=== PATIENT | female | born 1955 | race Caucasian/White ===

== ENCOUNTER 2016-08-12 20:52 | Emergency (ER) | payer MEDICAID ==
[~2016-08-12] VITALS: Ht 172.7 cm; Wt 60.0 kg
[~2016-08-12 20:52] MED LIST: ZYPR10TA PO
[2016-08-12 21:37] VITALS: BP 122/63; PULSE 88; RESP 18; TEMP 98.9; O2SAT 96
[2016-08-12] MEDS ORDERED: SODIUM CHLOR 0.9% 1000 ML INJ 1,000 ML IV SCH (21:54)
[2016-08-12] MEDS ORDERED: SODIUM CHLOR 0.9% 1000 ML INJ 1,000 ML IV ONE (22:00)
[2016-08-12] MEDS ORDERED: SODIUM CHLORIDE 0.9% FLUSH 10 ML FLUSH IV FLUSH PRN (22:00)
[2016-08-12] MEDS ORDERED: ONDANSETRON HCL 4 MG/2 ML VIAL IVP ONE (22:00)
[2016-08-12] MEDS ORDERED: FAMOTIDINE 20 MG/2 ML VIAL IV PUSH ONE (22:00)
--- NOTE | 2016-08-12 22:01 | PD ---
HPI Chief Complaint: Abdominal Pain Time Seen by Provider: 21:49 Travel History International Travel<30 days: No Contact w/Intl Traveler<30days: No Traveled to known affect area: No History of Present Illness HPI Patient is a 61-year-old female with history of schizophrenia who presents to emergency room from [facility] for evaluation of nausea, vomiting and abdominal pain. Patient reports that she has not been feeling well for the past few days, reports that she has been feeling nauseous and has been vomiting. She reports that she's been having multiple episodes of diarrhea per day. Patient reports that she has also been having diffuse abdominal pain. Patient with no fevers or chills, denies chest pain or shortness of breath. Patient reports that she feels crampy all over her body. PFSH Past Medical History Diminished Hearing: No Schizophrenia: Yes Tetanus Vaccination: Unknown Influenza Vaccination: No ?: Not LMP: manapause Past Surgical History Surgical History: No Previous Surgery Social History Alcohol Use: No Tobacco Use: No Substance Use: No Allergies-Medications (Allergen,Severity, Reaction): Coded Allergies: No Known Allergies (Unverified , 09/16/15) Reported Meds & Prescriptions Reported Meds & Active Scripts Active Miralax Powder (Polyethylene Glycol 3350 Powder) 17 Gm Powd 17 Gm PO DAILY Mix and dissolve one measuring cap-ful (17 grams) in water or juice. Zofran Odt (Ondansetron Odt) 4 Mg Tab 4 Mg SL Q6HR PRN Review of Systems General / Constitutional: No: Fever Eyes: No: Visual changes HENT: No: Headaches Cardiovascular: No: Chest Pain or Discomfort Respiratory: No: Shortness of Breath Gastrointestinal: Positive: Nausea, Vomiting, Diarrhea, Abdominal Pain Genitourinary: No: Dysuria Musculoskeletal: No: Pain Skin: No Rash Neurologic: No: Weakness Psychiatric: No: Depression Endocrine: No: Polydipsia Hematologic/Lymphatic: No: Easy Bruising Physical Exam Narrative GENERAL: No acute distress, nontoxic SKIN: Focused skin assessment warm/dry. HEAD: Atraumatic. Normocephalic. EYES: Pupils equal and round. No scleral icterus. No injection or drainage. ENT: No nasal bleeding or discharge. Mucous membranes pink and moist. NECK: Trachea midline. No JVD. CARDIOVASCULAR: Regular rate and rhythm. No murmur appreciated. RESPIRATORY: No accessory muscle use. Clear to auscultation. Breath sounds equal bilaterally. GASTROINTESTINAL: Abdomen soft, non-tender, nondistended. Hepatic and splenic margins not palpable. MUSCULOSKELETAL: No obvious deformities. No clubbing. No cyanosis. No edema. NEUROLOGICAL: Awake and alert. No obvious cranial nerve deficits. Motor grossly within normal limits. Normal speech. PSYCHIATRIC: Appropriate mood and affect; insight and judgment normal. Data Data Last Documented VS Vital Signs Date Time Temp Pulse Resp B/P Pulse Ox O2 Delivery O2 Flow Rate FiO2 08/12/16 22:42 70 18 118/70 96 Room Air 08/12/16 21:37 98.9 Orders Complete Blood Count With Diff (08/12/16 21:54) Comprehensive Metabolic Panel (08/12/16 21:54) Lipase (08/12/16 21:54) Prothrombin Time / Inr (Pt) (08/12/16 21:54) Act Partial Throm Time (Ptt) (08/12/16 21:54) Urinalysis - C+S If Indicated (08/12/16 21:54) Ct Abd/Pel W/O Iv Contrast (08/12/16 21:54) Iv Access Insert/Monitor (08/12/16 21:54) NPO (08/12/16 21:54) Ondansetron Inj (Zofran Inj) (08/12/16 22:00) Sodium Chlor 0.9% 1000 Ml Inj (Ns 1000 M (08/12/16 21:54) Sodium Chloride 0.9% Flush (Ns Flush) (08/12/16 22:00) Chest, Single Ap (08/12/16 21:54) Famotidine Inj (Pepcid Inj) (08/12/16 22:00) Sodium Chlor 0.9% 1000 Ml Inj (Ns 1000 M (08/12/16 22:00) Urine Culture (08/12/16 23:36) Nitrofurantoin Monohyd Macrocr (Macrobid (08/13/16 00:30) Labs Laboratory Tests Test 08/12/16 08/12/16 22:00 23:36 Prothrombin Time 10.8 SEC Prothromb Time International 1.0 RATIO Ratio Activated Partial 29.6 SEC Thromboplast Time Sodium Level 140 MEQ/L Potassium Level 3.8 MEQ/L Chloride Level 107 MEQ/L Carbon Dioxide Level 25.3 MEQ/L Anion Gap 8 MEQ/L Blood Urea Nitrogen 12 MG/DL Creatinine 0.90 MG/DL Estimat Glomerular Filtration 64 ML/MIN Rate Random Glucose 130 MG/DL Calcium Level 7.8 MG/DL Total Bilirubin 0.2 MG/DL Aspartate Amino Transf 29 U/L (AST/SGOT) Alanine Aminotransferase 26 U/L (ALT/SGPT) Alkaline Phosphatase 56 U/L Total Protein 6.1 GM/DL Albumin 3.0 GM/DL Lipase 67 U/L White Blood Count 5.4 TH/MM3 Red Blood Count 3.57 MIL/MM3 Hemoglobin 11.6 GM/DL Hematocrit 34.0 % Mean Corpuscular Volume 95.3 FL Mean Corpuscular Hemoglobin 32.6 PG Mean Corpuscular Hemoglobin 34.2 % Concent Red Cell Distribution Width 14.3 % Platelet Count 192 TH/MM3 Mean Platelet Volume 10.1 FL Neutrophils (%) (Auto) 59.5 % Lymphocytes (%) (Auto) 11.5 % Monocytes (%) (Auto) 26.4 % Eosinophils (%) (Auto) 1.8 % Basophils (%) (Auto) 0.8 % Neutrophils # (Auto) 3.2 TH/MM3 Lymphocytes # (Auto) 0.6 TH/MM3 Monocytes # (Auto) 1.4 TH/MM3 Eosinophils # (Auto) 0.1 TH/MM3 Basophils # (Auto) 0.0 TH/MM3 CBC Comment DIFF FINAL Differential Comment Urine Color LIGHT-YELLOW Urine Turbidity CLEAR Urine pH 6.5 Urine Specific [place] 1.008 Urine Protein NEG mg/dL Urine Glucose (UA) NEG mg/dL Urine Ketones 10 mg/dL Urine Occult Blood NEG Urine Nitrite NEG Urine Bilirubin NEG Urine Urobilinogen LESS THAN 2.0 MG/DL Urine Leukocyte Esterase MOD Urine RBC 1 /hpf Urine WBC 15 /hpf Urine Bacteria RARE /hpf Microscopic Urinalysis Comment CULTURE INDICATED MDM Medical Decision Making Medical Screen Exam Complete: Yes Emergency Medical Condition: Yes Interpretation(s) Vital Signs Date Time Temp Pulse Resp B/P Pulse Ox O2 Delivery O2 Flow Rate FiO2 08/12/16 21:37 98.9 88 18 122/63 96 Differential Diagnosis Gastroenteritis, appendicitis, acute cholecystitis, electrolyte abnormality, UTI Narrative Course Patient is a 61-year-old female who presents to emergency room with complaints of nausea, vomiting, diarrhea for the past 2 days. She has been able to eat minimally, reports that she is not feeling any better. Patient with no fevers or chills, reports that she has been having myalgias. No cough or congestion, denies chest pain or shortness of breath. On evaluation, patient is nontoxic and evaluation. Patient reports diffuse abdominal pain, plan to obtain lab work including liver function tests, will obtain x-ray of the chest to evaluate for free air, CT of abdomen and pelvis ordered to evaluate for intra-abdominal pathology. Vital Signs Date Time Temp Pulse Resp B/P Pulse Ox O2 Delivery O2 Flow Rate FiO2 08/12/16 22:42 70 18 118/70 96 Room Air 08/12/16 21:37 98.9 88 18 122/63 96 Laboratory Tests Test 08/12/16 22:00 White Blood Count 5.4 TH/MM3 (4.0-11.0) Red Blood Count 3.57 MIL/MM3 (4.00-5.30) Hemoglobin 11.6 GM/DL (11.6-15.3) Hematocrit 34.0 % (35.0-46.0) Mean Corpuscular Volume 95.3 FL (80.0-100.0) Mean Corpuscular Hemoglobin 32.6 PG (27.0-34.0) Mean Corpuscular Hemoglobin 34.2 % Concent (32.0-36.0) Red Cell Distribution Width 14.3 % (11.6-17.2) Platelet Count 192 TH/MM3 (150-450) Mean Platelet Volume 10.1 FL (7.0-11.0) Neutrophils (%) (Auto) 59.5 % (16.0-70.0) Lymphocytes (%) (Auto) 11.5 % (9.0-44.0) Monocytes (%) (Auto) 26.4 % (0.0-8.0) Eosinophils (%) (Auto) 1.8 % (0.0-4.0) Basophils (%) (Auto) 0.8 % (0.0-2.0) Neutrophils # (Auto) 3.2 TH/MM3 (1.8-7.7) Lymphocytes # (Auto) 0.6 TH/MM3 (1.0-4.8) Monocytes # (Auto) 1.4 TH/MM3 (0-0.9) Eosinophils # (Auto) 0.1 TH/MM3 (0-0.4) Basophils # (Auto) 0.0 TH/MM3 (0-0.2) CBC Comment DIFF FINAL Differential Comment Prothrombin Time 10.8 SEC (9.8-11.6) Prothromb Time International 1.0 RATIO Ratio Activated Partial 29.6 SEC Thromboplast Time (24.3-30.1) Sodium Level 140 MEQ/L (136-145) Potassium Level 3.8 MEQ/L (3.5-5.1) Chloride Level 107 MEQ/L (98-107) Carbon Dioxide Level 25.3 MEQ/L (21.0-32.0) Anion Gap 8 MEQ/L (5-15) Blood Urea Nitrogen 12 MG/DL (7-18) Creatinine 0.90 MG/DL (0.50-1.00) Estimat Glomerular Filtration 64 ML/MIN (>89) Rate Random Glucose 130 MG/DL (74-106) Calcium Level 7.8 MG/DL (8.5-10.1) Total Bilirubin 0.2 MG/DL (0.2-1.0) Aspartate Amino Transf 29 U/L (15-37) (AST/SGOT) Alanine Aminotransferase 26 U/L (10-53) (ALT/SGPT) Alkaline Phosphatase 56 U/L (45-117) Total Protein 6.1 GM/DL (6.4-8.2) Albumin 3.0 GM/DL (3.4-5.0) Lipase 67 U/L (73-393) Last Impressions Chest X-Ray 08/12/162153 Signed Impressions: Service Date/Time: Friday, August 12, 2016 22:12 - CONCLUSION: No acute disease. Last Khan MD Abdomen/Pelvis CT 08/12/162153 Signed Impressions: Service Date/Time: Friday, August 12, 2016 22:05 - CONCLUSION: No acute abnormality seen. There is a moderate amount of stool seen throughout the colon. Last Khan MD Patient with no nausea or vomiting while in the emergency room. Patient comfortable, abdomen is soft, nontender, nondistended, no peritoneal signs. Reviewed all labs and all studies the patient in detail, she will follow-up with her private care doctor and will return to emergency room as needed. Diagnosis Primary Impression: Abdominal pain Qualified Code: R10.84 - Generalized abdominal pain Additional Impressions: Nausea vomiting and diarrhea Constipation Qualified Code: K59.00 - Constipation, unspecified constipation type UTI (urinary tract infection) Qualified Code: N30.00 - Acute cystitis without hematuria Patient Instructions: General Instructions Additional Instructions: Please follow-up with your primary care doctor in 1-2 days Return to the emergency room as needed Return to the emergency room if symptoms progress or worsen or return Please follow up with all cultures from today Med/Other Pt SpecificInfo: Prescription(s) given Scripts Nitrofurantoin Monohydrate Macrocrystals (Macrobid)100 Mg Cof218 Mg PO BID 10 Days Ref 0 Prov:Marisa Parisi DO 08/13/16 Polyethylene Glycol 3350 Powder (Miralax Powder)17 Gm Powd17 Gm PO DAILY #1 BOTTLE Ref 0 Mix and dissolve one measuring cap-ful (17 grams) in water or juice. Prov:Marisa Parisi DO 08/12/16 Ondansetron Odt (Zofran Odt)4 Mg Tab4 Mg SL Q6HR PRN (Nausea/Vomiting) #30 TAB Ref 0 Prov:Marisa Parisi DO 08/12/16 Disposition: 01 DISCHARGE HOME Condition: Stable Marisa Parisi DO Aug 12, 2016 22:01
[2016-08-12 22:29] LABS: AUTOMATED NEUTROPHIL # 3.2 TH/MM3 (1.8-7.7); BASOPHIL % 0.8 % (0.0-2.0); EOSINOPHIL # 0.1 TH/MM3 (0-0.4); EOSINOPHIL % 1.8 % (0.0-4.0); HEMO FLAGS DIFF FINAL; LYMPH % 11.5 % (9.0-44.0); LYMPHOCYTE # 0.6 TH/MM3 (1.0-4.8); MEAN CELL VOLUME 95.3 FL (80.0-100.0); MEAN CORPUSCULAR HEMOGLOBIN 32.6 PG (27.0-34.0); MEAN CORPUSCULAR HGB CONC 34.2 % (32.0-36.0); MONO % 26.4 % (0.0-8.0); NEUT % 59.5 % (16.0-70.0); PLATELET COUNT 192 TH/MM3 (150-450); RED BLOOD COUNT 3.57 MIL/MM3 (4.00-5.30); RED CELL DISTRIBUTION WIDTH 14.3 % (11.6-17.2); WHITE BLOOD COUNT 5.4 TH/MM3 (4.0-11.0)
--- NOTE | 2016-08-12 22:29 | RADRPT ---
EXAM DATE/TIME: 08/12/2016 22:05 [facility] COMPARISON: No previous studies available for comparison. INDICATIONS : Abdomen pain with nausea and vomiting. ORAL CONTRAST: No oral contrast ingested. RADIATION DOSE: 4.80 CTDIvol (mGy) MEDICAL HISTORY : Non-responsive. SURGICAL HISTORY : Non-responsive. ENCOUNTER: Initial ACUITY: 2 days PAIN SCALE: Non-responsive LOCATION: abdomen TECHNIQUE: Volumetric scanning of the abdomen and pelvis was performed. Using automated exposure control and ad justment of the mA and/or kV according to patient size, radiation dose was kept as low as reasonably achievable to obtain optimal diagnostic quality images. FINDINGS: LOWER LUNGS: There is linear scarring or atelectasis at the lung bases. LIVER: Homogeneous density without lesion. There is no dilation of the biliary tree. No calcified gallston es. SPLEEN: Normal size without lesion. PANCREAS: Within normal limits. KIDNEYS: Normal in size and shape. There is no mass, stone, or hydronephrosis. ADRENAL GLANDS: Within normal limits. VASCULAR: There is no aortic aneurysm. BOWEL/MESENTERY: There is moderate stool seen throughout the colon. The stomach and small bowel demonstrate no acute a bnormality. There is no free intraperitoneal air or fluid. The appendix appears normal. ABDOMINAL WALL: Within normal limits. RETROPERITONEUM: There is no lymphadenopathy. BLADDER: No wall thickening or mass. REPRODUCTIVE: Within normal limits. INGUINAL: There is no lymphadenopathy or hernia. MUSCULOSKELETAL: Within normal limits for patient age. CONCLUSION: No acute abnormality seen. There is a moderate amount of stool seen throughout the colon. Last Khan MD on August 12, 2016 at 22:24 Board Certified Radiologist. This report was verified electronically.
--- NOTE | 2016-08-12 22:32 | RADRPT ---
EXAM DATE/TIME: 08/12/2016 22:12 [facility] COMPARISON: No previous studies available for comparison. INDICATIONS : Evaluate for free air. weakness. MEDICAL HISTORY : None. SURGICAL HISTORY : None. ENCOUNTER: Initial ACUITY: 1 day PAIN SCORE: 0/10 LOCATION: Bilateral chest FINDINGS: A single view of the chest demonstrates the lungs to be symmetrically aerated without evidence of mas s, infiltrate or effusion. The cardiomediastinal contours are unremarkable. CONCLUSION: No acute disease. Last Khan MD on August 12, 2016 at 22:29 Board Certified Radiologist. This report was verified electronically.
[2016-08-12 22:42] VITALS: BP 118/70; PULSE 70; RESP 18; O2SAT 96
[2016-08-12 22:45] LABS: APTT (PATIENT) 29.6 SEC (24.3-30.1); PROTHROMBIN TIME - PATIENT 10.8 SEC (9.8-11.6)
[2016-08-12 22:59] LABS: ALKALINE PHOSPHATASE 56 U/L (45-117); ALT (GPT) 26 U/L (10-53); ANION GAP 8 MEQ/L (5-15); AST (GOT) 29 U/L (15-37); BICARBONATE 25.3 MEQ/L (21.0-32.0); BLOOD UREA NITROGEN 12 MG/DL (7-18); CHLORIDE 107 MEQ/L (98-107); GLOMERULAR FILTRATION RATE 64 ML/MIN (>89); SODIUM (NA) 140 MEQ/L (136-145); TOTAL BILIRUBIN ADULT 0.2 MG/DL (0.2-1.0)
[2016-08-12 23:01] LABS: POTASSIUM 3.8 MEQ/L (3.5-5.1)
[2016-08-12] MEDS ORDERED: ZOFR4TAB3 SL (23:13)
[2016-08-12] MEDS ORDERED: MIRA33504 PO (23:13)
[2016-08-13 00:06] LABS: BACTERIA, URINE RARE /hpf; BLOOD, URINE NEG (NEG); GLUCOSE,URINE NEG (NEG); KETONE, URINE 10 mg/dL (NEG); NITRITE,URINE NEG (NEG); PH, URINE 6.5 (5.0-8.5); URINE COLOR LIGHT-YELLOW (YELLW/STRAW)
[2016-08-13 00:08] LABS: COMMENT (UR) CULTURE INDICATED; CULTURE IF INDICATED CULTURE INDICATED
[2016-08-13] MEDS ORDERED: MACR100C2 PO (00:23)
[2016-08-13] MEDS ORDERED: NITROFURANTOIN MONOHYD MACROCR 100 MG CAP PO ONE (00:30)
== END 2016-08-13 12:14 | disposition home or self-care (01) ==
LOC: NEPD 20:52
DX: R10.84 Generalized abdominal pain (principal); R19.7 Diarrhea, unspecified; R11.2 Nausea with vomiting, unspecified; K59.00 Constipation, unspecified; N30.00 Acute cystitis without hematuria
CPT/HCPCS: 71010; 74176; 80053; 81001; 83690; 85025; 85610; 85730; 87086; 96374; 96375; 99285; J2405; J7030

== ENCOUNTER 2016-09-14 08:07 | Emergency (ER) | payer MEDICAID ==
[~2016-09-14] VITALS: Ht 162.6 cm; Wt 54.0 kg
[~2016-09-14 08:07] MED LIST changes: +MACR100C2 PO; +MIRA33504 PO; +ZOFR4TAB3 SL; -ZYPR10TA PO
[2016-09-14 08:09] VITALS: BP 137/73; PULSE 86; RESP 20; O2SAT 98
[2016-09-14] MEDS ORDERED: SODIUM CHLOR 0.9% 1000 ML INJ 1,000 ML IV SCH (08:59)
[2016-09-14] MEDS ORDERED: SODIUM CHLORIDE 0.9% FLUSH 10 ML FLUSH IV FLUSH PRN (09:00)
[2016-09-14] MEDS ORDERED: FAMOTIDINE 20 MG/2 ML VIAL IV PUSH ONE (09:00)
[2016-09-14] MEDS ORDERED: ONDANSETRON HCL 4 MG/2 ML VIAL IVP ONE (09:00)
--- NOTE | 2016-09-14 09:05 | PD ---
HPI Chief Complaint: GI Complaint Time Seen by Provider: 08:47 Travel History International Travel<30 days: No Contact w/Intl Traveler<30days: No Traveled to known affect area: No History of Present Illness HPI Patient is a 61-year-old female from [facility] who presents to emergency room with complaints of nausea and vomiting and diarrhea for about 2 weeks to months time. She reports that she has been having intermittent abdominal bloating and pain, symptoms associated with nausea vomiting and diarrhea. Patient reports that there are no sick contacts at her facility's, reports that she is able to eat and drink to maintain hydration. Patient reports concern as symptoms have been intermittent in nature. Reports no abdominal pain at this time. Patient reports that she does feel nauseous. She denies taking any recent antibiotics, denies any recent travels. PFSH Past Medical History Diminished Hearing: No Schizophrenia: Yes ?: Not Social History Alcohol Use: No Tobacco Use: No Substance Use: No Allergies-Medications (Allergen,Severity, Reaction): Coded Allergies: No Known Allergies (Unverified , 09/14/16) Reported Meds & Prescriptions Reported Meds & Active Scripts Active Reported Zyprexa (Olanzapine) 2.5 Mg Tab 2.5 Mg PO BID Review of Systems General / Constitutional: No: Fever Eyes: No: Visual changes HENT: No: Headaches Cardiovascular: No: Chest Pain or Discomfort Respiratory: No: Shortness of Breath Gastrointestinal: Positive: Nausea, Vomiting, Diarrhea, No: Abdominal Pain Genitourinary: No: Dysuria Musculoskeletal: No: Pain Skin: No Rash Neurologic: No: Weakness Psychiatric: No: Depression Endocrine: No: Polydipsia Hematologic/Lymphatic: No: Easy Bruising Physical Exam Narrative GENERAL: No acute distress, nontoxic SKIN: Focused skin assessment warm/dry. HEAD: Atraumatic. Normocephalic. EYES: Pupils equal and round. No scleral icterus. No injection or drainage. ENT: No nasal bleeding or discharge. Mucous membranes pink and moist. NECK: Trachea midline. No JVD. CARDIOVASCULAR: Regular rate and rhythm. No murmur appreciated. RESPIRATORY: No accessory muscle use. Clear to auscultation. Breath sounds equal bilaterally. GASTROINTESTINAL: Abdomen soft, non-tender, nondistended. Hepatic and splenic margins not palpable. MUSCULOSKELETAL: No obvious deformities. No clubbing. No cyanosis. No edema. NEUROLOGICAL: Awake and alert. No obvious cranial nerve deficits. Motor grossly within normal limits. Normal speech. PSYCHIATRIC: Appropriate mood and affect Data Data Last Documented VS Vital Signs Date Time Temp Pulse Resp B/P Pulse Ox O2 Delivery O2 Flow Rate FiO2 09/14/16 10:08 97.7 09/14/16 08:09 86 20 137/73 98 Room Air Orders Complete Blood Count With Diff (09/14/16 08:59) Comprehensive Metabolic Panel (09/14/16 08:59) Lipase (09/14/16 08:59) Prothrombin Time / Inr (Pt) (09/14/16 08:59) Act Partial Throm Time (Ptt) (09/14/16 08:59) Urinalysis - C+S If Indicated (09/14/16 08:59) Iv Access Insert/Monitor (09/14/16 08:59) Ecg Monitoring (09/14/16 08:59) Ondansetron Inj (Zofran Inj) (09/14/16 09:00) Sodium Chlor 0.9% 1000 Ml Inj (Ns 1000 M (09/14/16 08:59) Sodium Chloride 0.9% Flush (Ns Flush) (09/14/16 09:00) Famotidine Inj (Pepcid Inj) (09/14/16 09:00) Labs Laboratory Tests Test 09/14/16 09/14/16 09:05 10:09 White Blood Count 4.9 TH/MM3 Red Blood Count 3.97 MIL/MM3 Hemoglobin 13.0 GM/DL Hematocrit 38.1 % Mean Corpuscular Volume 96.0 FL Mean Corpuscular Hemoglobin 32.6 PG Mean Corpuscular Hemoglobin 34.0 % Concent Red Cell Distribution Width 14.1 % Platelet Count 232 TH/MM3 Mean Platelet Volume 9.2 FL Neutrophils (%) (Auto) 40.2 % Lymphocytes (%) (Auto) 31.2 % Monocytes (%) (Auto) 18.0 % Eosinophils (%) (Auto) 10.3 % Basophils (%) (Auto) 0.3 % Neutrophils # (Auto) 2.0 TH/MM3 Lymphocytes # (Auto) 1.5 TH/MM3 Monocytes # (Auto) 0.9 TH/MM3 Eosinophils # (Auto) 0.5 TH/MM3 Basophils # (Auto) 0.0 TH/MM3 CBC Comment DIFF FINAL Differential Comment Prothrombin Time 10.4 SEC Prothromb Time International 0.9 RATIO Ratio Activated Partial 27.5 SEC Thromboplast Time Sodium Level 141 MEQ/L Potassium Level 3.6 MEQ/L Chloride Level 109 MEQ/L Carbon Dioxide Level 27.0 MEQ/L Anion Gap 5 MEQ/L Blood Urea Nitrogen 11 MG/DL Creatinine 0.68 MG/DL Estimat Glomerular Filtration 88 ML/MIN Rate Random Glucose 71 MG/DL Calcium Level 8.1 MG/DL Total Bilirubin 0.1 MG/DL Aspartate Amino Transf 40 U/L (AST/SGOT) Alanine Aminotransferase 48 U/L (ALT/SGPT) Alkaline Phosphatase 59 U/L Total Protein 6.5 GM/DL Albumin 3.0 GM/DL Lipase 75 U/L Urine Color LIGHT-YELLOW Urine Turbidity CLEAR Urine pH 6.0 Urine Specific Sylvia 1.005 Urine Protein NEG mg/dL Urine Glucose (UA) NEG mg/dL Urine Ketones NEG mg/dL Urine Occult Blood NEG Urine Nitrite NEG Urine Bilirubin NEG Urine Urobilinogen LESS THAN 2.0 MG/DL Urine Leukocyte Esterase NEG Urine RBC LESS THAN 1 /hpf Urine WBC 1 /hpf Microscopic Urinalysis Comment CULT NOT INDICATED MDM Medical Decision Making Medical Screen Exam Complete: Yes Emergency Medical Condition: Yes Interpretation(s) Vital Signs Date Time Temp Pulse Resp B/P Pulse Ox O2 Delivery O2 Flow Rate FiO2 09/14/16 08:09 86 20 137/73 98 Room Air Differential Diagnosis Gastroenteritis, gastritis, constipation, colitis, cystitis, electrolyte abnormality, UTI Narrative Course Patient is a 61-year-old female who presents to emergency room with complaints of intermittent abdominal pain and bloating along with nausea, vomiting and diarrhea for the past 2 weeks to a month. Patient reports his symptoms have been intermittent in nature, reports that she is able to eat and drink but is concerned about her abdominal bloating. Patient reports that she has no abdominal pain at this time, she does feel nauseous. On evaluation, patient does appear nontoxic. Abdomen is soft, nontender, nondistended, no peritoneal signs. Will obtain blood work including liver function tests, will give IV fluids and antiemetics. Will perform abdominal exams. Of note, patient was seen on August 12, 2016 for similar symptoms. She did have lab work including a CT of her abdomen and pelvis performed which showed no acute abnormalities but a moderate amount of stool seen throughout the colon. Since patient does not have any abdominal pain at that time, plan to monitor patient with serial abdominal exams. Vital Signs Date Time Temp Pulse Resp B/P Pulse Ox O2 Delivery O2 Flow Rate FiO2 09/14/16 10:08 97.7 09/14/16 08:09 86 20 137/73 98 Room Air Laboratory Tests Test 09/14/16 09/14/16 09:05 10:09 White Blood Count 4.9 TH/MM3 (4.0-11.0) Red Blood Count 3.97 MIL/MM3 (4.00-5.30) Hemoglobin 13.0 GM/DL (11.6-15.3) Hematocrit 38.1 % (35.0-46.0) Mean Corpuscular Volume 96.0 FL (80.0-100.0) Mean Corpuscular Hemoglobin 32.6 PG (27.0-34.0) Mean Corpuscular Hemoglobin 34.0 % Concent (32.0-36.0) Red Cell Distribution Width 14.1 % (11.6-17.2) Platelet Count 232 TH/MM3 (150-450) Mean Platelet Volume 9.2 FL (7.0-11.0) Neutrophils (%) (Auto) 40.2 % (16.0-70.0) Lymphocytes (%) (Auto) 31.2 % (9.0-44.0) Monocytes (%) (Auto) 18.0 % (0.0-8.0) Eosinophils (%) (Auto) 10.3 % (0.0-4.0) Basophils (%) (Auto) 0.3 % (0.0-2.0) Neutrophils # (Auto) 2.0 TH/MM3 (1.8-7.7) Lymphocytes # (Auto) 1.5 TH/MM3 (1.0-4.8) Monocytes # (Auto) 0.9 TH/MM3 (0-0.9) Eosinophils # (Auto) 0.5 TH/MM3 (0-0.4) Basophils # (Auto) 0.0 TH/MM3 (0-0.2) CBC Comment DIFF FINAL Differential Comment Prothrombin Time 10.4 SEC (9.8-11.6) Prothromb Time International 0.9 RATIO Ratio Activated Partial 27.5 SEC Thromboplast Time (24.3-30.1) Sodium Level 141 MEQ/L (136-145) Potassium Level 3.6 MEQ/L (3.5-5.1) Chloride Level 109 MEQ/L (98-107) Carbon Dioxide Level 27.0 MEQ/L (21.0-32.0) Anion Gap 5 MEQ/L (5-15) Blood Urea Nitrogen 11 MG/DL (7-18) Creatinine 0.68 MG/DL (0.50-1.00) Estimat Glomerular Filtration 88 ML/MIN (>89) Rate Random Glucose 71 MG/DL (74-106) Calcium Level 8.1 MG/DL (8.5-10.1) Total Bilirubin 0.1 MG/DL (0.2-1.0) Aspartate Amino Transf 40 U/L (15-37) (AST/SGOT) Alanine Aminotransferase 48 U/L (10-53) (ALT/SGPT) Alkaline Phosphatase 59 U/L (45-117) Total Protein 6.5 GM/DL (6.4-8.2) Albumin 3.0 GM/DL (3.4-5.0) Lipase 75 U/L (73-393) Urine Color LIGHT-YELLOW (YELLW/STRAW) Urine Turbidity CLEAR (CLEAR) Urine pH 6.0 (5.0-8.5) Urine Specific Sylvia 1.005 (1.002-1.035) Urine Protein NEG mg/dL (NEG-TRACE) Urine Glucose (UA) NEG mg/dL (NEG) Urine Ketones NEG mg/dL (NEG) Urine Occult Blood NEG (NEG) Urine Nitrite NEG (NEG) Urine Bilirubin NEG (NEG) Urine Urobilinogen LESS THAN 2.0 MG/DL (LESS THAN 2.0) Urine Leukocyte Esterase NEG (NEG) Urine RBC LESS THAN 1 /hpf (0-3) Urine WBC 1 /hpf (0-5) Microscopic Urinalysis Comment CULT NOT INDICATED Abdomen soft, nontender, nondistended, no peritoneal signs.glucose is 71, will give her food tray. patient with no signs of obstruction or intra-abdominal pathology at this time.plan to have patient follow-up with gastrointestinal doctor. Patient will follow-up with her primary care doctor. She will return to the emergency room as needed Diagnosis Primary Impression: Nausea vomiting and diarrhea Referrals: Giuliana Cruz MD Patient Instructions: General Instructions Additional Instructions: Please drink plenty of fluids Please follow-up with design teacher as soon as possible Return to the emergency room symptoms worsen or persist Return to the emergency room as needed Disposition: 01 DISCHARGE HOME Condition: Stable Marisa Parisi DO September 14, 2016 09:05
[2016-09-14] MEDS ORDERED: OLAN2.5T PO (09:06)
[2016-09-14] MEDS ORDERED: ZYPR2.5T2 PO (09:06)
[2016-09-14 09:46] LABS: BASOPHIL % 0.3 % (0.0-2.0); EOSINOPHIL # 0.5 TH/MM3 (0-0.4); EOSINOPHIL % 10.3 % (0.0-4.0); HEMATOCRIT 38.1 % (35.0-46.0); HEMO FLAGS DIFF FINAL; LYMPH % 31.2 % (9.0-44.0); LYMPHOCYTE # 1.5 TH/MM3 (1.0-4.8); MEAN CORPUSCULAR HEMOGLOBIN 32.6 PG (27.0-34.0); NEUT % 40.2 % (16.0-70.0); PLATELET COUNT 232 TH/MM3 (150-450); RED BLOOD COUNT 3.97 MIL/MM3 (4.00-5.30); RED CELL DISTRIBUTION WIDTH 14.1 % (11.6-17.2); WHITE BLOOD COUNT 4.9 TH/MM3 (4.0-11.0)
[2016-09-14 09:56] LABS: APTT (PATIENT) 27.5 SEC (24.3-30.1); INTERNATIONAL NORMALIZED RATIO 0.9 RATIO; PROTHROMBIN TIME - PATIENT 10.4 SEC (9.8-11.6)
[2016-09-14 09:59] LABS: ANION GAP 5 MEQ/L (5-15); AST (GOT) 40 U/L (15-37); BLOOD UREA NITROGEN 11 MG/DL (7-18); CHLORIDE 109 MEQ/L (98-107); GLOMERULAR FILTRATION RATE 88 ML/MIN (>89); POTASSIUM 3.6 MEQ/L (3.5-5.1); SODIUM (NA) 141 MEQ/L (136-145)
[2016-09-14 10:00] LABS: ALT (GPT) 48 U/L (10-53)
[2016-09-14 10:02] LABS: ALKALINE PHOSPHATASE 59 U/L (45-117); TOTAL BILIRUBIN ADULT 0.1 MG/DL (0.2-1.0)
[2016-09-14 10:08] VITALS: TEMP 97.7
[2016-09-14 10:28] LABS: BLOOD, URINE NEG (NEG); COMMENT (UR) CULT NOT INDICATED; CULTURE IF INDICATED CULT NOT INDICATED; GLUCOSE,URINE NEG (NEG); KETONE, URINE NEG (NEG); NITRITE,URINE NEG (NEG); URINE COLOR LIGHT-YELLOW (YELLW/STRAW)
[2016-09-14 12:03] VITALS: BP 138/74; TEMP 98.1
== END 2016-09-14 12:04 | disposition home or self-care (01) ==
LOC: NEPE 08:07
DX: R11.2 Nausea with vomiting, unspecified (principal); R19.7 Diarrhea, unspecified
CPT/HCPCS: 80053; 81001; 83690; 85025; 85610; 85730; 96361; 96374; 96375; 99284; J2405; J7030

== ENCOUNTER 2017-02-18 19:34 | Inpatient (IN) | payer MEDICAID, OTHER ==
[2017-02-18 19:00] VITALS: BP 138/62; PULSE 84; RESP 18; TEMP 98.2; O2SAT 97
[~2017-02-18 19:34] MED LIST changes: +BENZ0.5T PO; +DIPH25CA PO; +DIVA500T3 PO; +LORA0.5T PO; -MACR100C2 PO; -MIRA33504 PO; +VITA100T65 PO; +ZIPR1CAP12 PO; -ZOFR4TAB3 SL
[2017-02-18] MEDS: REMOVE OLD NICOTINE PATCH T-DERMAL SCH (21:00)
[2017-02-18] MEDS ORDERED: ACETAMINOPHEN 325 MG TAB PO PRN ×2 (22:15→22:45)
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
[2017-02-18] MEDS ORDERED: SENNOSIDES 8.6 MG TAB PO PRN (23:00)
[2017-02-18] MEDS ORDERED: LACTULOSE SYRUP 20 GM/30 ML CUP PO PRN (23:00)
[2017-02-18] MEDS ORDERED: HALOPERIDOL LACTATE 5 MG/ML AMP IM PRN (23:00)
[2017-02-19 05:33] VITALS: BP 105/57; PULSE 65; RESP 18; TEMP 98.3; O2SAT 98
[2017-02-19] MEDS: BENZTROPINE MESYLATE 2 MG TAB PO SCH (09:00)
[2017-02-19] MEDS: DIVALPROEX SODIUM E.R. 500 MG TAB PO SCH ×2 (09:00→20:23)
[2017-02-19] MEDS: NICOTINE 21 MG/24 HR PATCH T-DERMAL SCH (09:00)
[2017-02-19] MEDS ORDERED: BENZTROPINE MESYLATE 2 MG TAB PO SCH (09:00)
[2017-02-19] MEDS: ZIPRASIDONE HCL 80 MG CAP PO SCH ×2 (09:00→20:23)
[2017-02-19] MEDS ORDERED: NICOTINE 21 MG/24 HR PATCH T-DERMAL SCH (09:00)
--- NOTE | 2017-02-19 10:19 | PD.PSY.CON ---
Provisional Diagnosis Admission Date Feb 18, 2017 at 19:34 [place] I. Schizophrenia History of Present Illness Service Psychiatry Consult Requested By Psychiatry Reason for Consult 2nd Opinion Primary Care Physician Unknown HPI Pt seen and chart reviewed. Pt is a 61YOWF with a hx of schizophrenia who was admitted to [facility] under a BA due to psychosis. Last night she was running up and down hallway, hissing at staff and responding to internal stimuli. She refused EKG. She was agitated this morning and was given IM haldol 5mg X1 for safety and calmed down. Pt states that she is not having a good day but feels that her medications "are actually getting better for me. I guess they are helping". She is evasive when asked if she had been compliant with psychiatric medications prior to admission. She rambles and is quite delusional and paranoid. Past Family Social History Coded Allergies: No Known Allergies (Unverified Allergy, Unknown, 02/17/17) Past Medical History denies Reported Medications Ziprasidone (Ziprasidone) 80 Mg Cap, 80 MG PO BID, #60 CAP 0 Refills 02/17/17 Vitamin E (Vitamin E) 100 Unit Tab, 100 UNITS PO DAILY for Nutritional Supplement, TAB 0 Refills 02/17/17 Lorazepam (Lorazepam) 0.5 Mg Tab, 0.5 MG PO Q8H Y for ANXIETY, TAB 0 Refills 02/17/17 Divalproex ER (Divalproex ER) 500 Mg Tab, 500 MG PO BID for Control Seizures, # 30 TAB 0 Refills 02/17/17 Diphenhydramine (Diphenhydramine) 25 Mg Cap, 25 MG PO Q12H Y for ALLERGIES, CAP 0 Refills 02/17/17 Benztropine (Benztropine) 0.5 Mg Tab, 2 MG PO BID, #60 TAB 0 Refills 02/17/17 Discontinued Reported Medications Olanzapine (Zyprexa) 2.5 Mg Tab, 2.5 MG PO BID, #60 TAB 0 Refills 09/14/16 Current Medications Medications (Trade) Dose Ordered Sig/Luh Route Start Time Stop Time Status Last Admin Miscellaneous Information 1 HS T-DERMAL 02/18/17 21:00 (Tylenol) 650 mg Q4H PRN PO 02/18/17 22:45 (Habitrol 21 Mg Patch.24 Hr) 1 patch DAILY T-DERMAL 02/19/17 09:00 (Cogentin) 2 mg DAILY PO 02/19/17 09:00 (Depakote Er) 500 mg BID PO 02/19/17 09:00 (Geodon) 80 mg BID PO 02/19/17 09:00 (Haldol Inj) 2 mg Q6H PRN IM 02/18/17 23:00 02/19/17 08:17 (Lactulose Liq) 30 ml DAILY PRN PO 02/18/17 23:00 (Senokot) 17.2 mg DAILY PRN PO 02/18/17 23:00 Family Psych History Pt unable to provide Social History Lives at [place]. No children. and spouse has mental health illness too per report. Receives SSI benefits. Patient's Strengths (min. 2) verbal and communicative Physical Exam Vital Signs Vital Signs Date Time Temp Pulse Resp B/P (MAP) Pulse Ox O2 Delivery O2 Flow Rate FiO2 02/19/17 05:33 98.3 65 18 105/57 (73) 98 I/O 02/19/17 02/19/17 02/20/17 08:00 16:00 00:00 Intake Total 0 ml Balance 0 ml Mental Status Examination Appearance: Appropriate Consciousness: Alert Orientation: Person, Place Speech: Other (laughing out loud at times) Language: Other (making strange sounds at times) Fund of Knowledge: Inadequate Attention and Concentration: Easily Distracted Memory: Impaired Mood: Other ("not so good") Affect: Labile Thought Process & Associations: Loose associations, Disorganized Thought Content: Bizarre thinking, Hallucinations, Delusional Hallucination Type: Auditory Delusion Type: Bizarre, Paranoid Suicidal Ideation: No Suicidal Plan: No Suicidal Intention: No Homicidal Ideation: No Homicidal Plan: No Homicidal Intention: No Insight: Poor Judgment: Poor Assessment & Plan Problem List: (1) Schizophrenia ICD Codes: F20.9 - Schizophrenia, unspecified Status: Acute Assessment & Plan I agree that pt meets criteria for invountary hospitalizations. 2nd opinion paperwork completed. Check repeat of ammonia level. Estimated LOS: days Yolie Waldron MD Feb 19, 2017 10:19
[2017-02-19 12:37] LABS: AUTOMATED NEUTROPHIL # 2.6 TH/MM3 (1.8-7.7); BASOPHIL % 0.5 % (0.0-2.0); EOSINOPHIL % 0.7 % (0.0-4.0); HEMATOCRIT 35.4 % (35.0-46.0); HEMO FLAGS DIFF FINAL; LYMPH % 36.7 % (9.0-44.0); LYMPHOCYTE # 2.1 TH/MM3 (1.0-4.8); MEAN CELL VOLUME 102.7 FL (80.0-100.0); MEAN CORPUSCULAR HEMOGLOBIN 35.1 PG (27.0-34.0); MEAN CORPUSCULAR HGB CONC 34.2 % (32.0-36.0); NEUT % 46.1 % (16.0-70.0); PLATELET COUNT 138 TH/MM3 (150-450); RED BLOOD COUNT 3.44 MIL/MM3 (4.00-5.30); WHITE BLOOD COUNT 5.7 TH/MM3 (4.0-11.0)
[2017-02-19 13:21] LABS: BICARBONATE 22.9 MEQ/L (21.0-32.0); BLOOD UREA NITROGEN 13 MG/DL (7-18); GLOMERULAR FILTRATION RATE 78 ML/MIN (>89)
[2017-02-19 13:41] LABS: ANION GAP 11 MEQ/L (5-15); CHLORIDE 106 MEQ/L (98-107); HDL CHOLESTEROL 44.7 MG/DL (40.0-60.0); LDL CHOLESTEROL 62 MG/DL (0-99); POTASSIUM 3.6 MEQ/L (3.5-5.1); SODIUM (NA) 140 MEQ/L (136-145)
[2017-02-19 13:46] LABS: HEMOGLOBIN A1a 1.5 %; HEMOGLOBIN A1b 0.7 %; HEMOGLOBIN Ao 84.6 %; HEMOGLOBIN F 2.1 %; HEMOGLOBIN P3 3.6 %
[2017-02-19 17:26] VITALS: BP 111/71; PULSE 93; RESP 17; TEMP 98; O2SAT 99
[2017-02-19] MEDS: REMOVE OLD NICOTINE PATCH T-DERMAL SCH (20:32)
[2017-02-20 04:44] VITALS: BP 148/65; PULSE 70; RESP 20; TEMP 97.8; O2SAT 97
[2017-02-20] MEDS: ZIPRASIDONE HCL 80 MG CAP PO SCH ×2 (08:27→20:48)
[2017-02-20] MEDS: BENZTROPINE MESYLATE 2 MG TAB PO SCH (08:27)
[2017-02-20] MEDS: DIVALPROEX SODIUM E.R. 500 MG TAB PO SCH ×2 (08:27→20:49)
[2017-02-20] MEDS: NICOTINE 21 MG/24 HR PATCH T-DERMAL SCH (08:30)
--- NOTE | 2017-02-20 10:03 | PD.TTN ---
Patient Problems 1. Discharge planning 2. Medication compliance 3. Knowledge deficit 4. Lack of coping skills Progress Toward Goals Provider Present: Dr. Denis Bar Provider Input: 02/20 -Patient is new Nurse(s) Input: 02/20 patient needed ETO last night very uncontrolled Psychiatric Counselors Present: Alice Thompson LCSW Psych Therapist Input: 02/20 patient is from [place], very psychotic at baseline, needs Ingrezza nurse will get with pharmacy if available here 80 mg per day can return to [place] once stable Alice Thompson LCSW Feb 20, 2017 10:03
[2017-02-20] MEDS ORDERED: ALUMINUM/MAGNESIUM/SIMETH 30 ML CUP PO PRN (10:45)
[2017-02-20] MEDS ORDERED: ACETAMINOPHEN 325 MG TAB PO PRN ×2 (10:45)
[2017-02-20] MEDS ORDERED: MAGNESIUM HYDROXIDE SUSP 30 ML CUP PO PRN (10:45)
[2017-02-20] MEDS ORDERED: hydrOXYzine HCL 50 MG TAB PO PRN ×2 (10:45)
--- NOTE | 2017-02-20 10:49 | HHI.PYPN ---
Subjective Chief Complaint: increase auditory hallucinations Remarks Patient seen in her room with counselor Alice and medical student Jesse, chart review, patient initially seen by Dr. Irby the document reviewed and agreed with. The psychiatric template protocol finished by me. Patient laying quietly in bed she is calm cooperative quite superficial silly and somewhat childlike with a high-pitched voice. While she denies voices she appears to be responding to internal stimuli, there is thought blocking noted. However I do not see any signs right now of tardive dyskinesia or EPS. It appears patient is on just released no medication for that problem. The staff and [facility] states patient said very poor results with more traditional medications for those motor movements. We will attempt to get that medication for her otherwise she'll continue her other medications. Denies suicidality homicidality. Review of Systems Except as stated in HPI: all other systems reviewed are Neg Mental Status Examination Appearance: Appropriate Consciousness: Alert Orientation: Person, Place Speech: Other (laughing out loud at times) Language: Other (making strange sounds at times) Fund of Knowledge: Inadequate Attention and Concentration: Easily Distracted Memory: Impaired Mood: Other ("not so good") Affect: Labile Thought Process & Associations: Loose associations, Disorganized Thought Content: Bizarre thinking, Hallucinations, Delusional Hallucination Type: Auditory Delusion Type: Bizarre, Paranoid Suicidal Ideation: No Suicidal Plan: No Suicidal Intention: No Homicidal Ideation: No Homicidal Plan: No Homicidal Intention: No Insight: Poor Judgment: Poor Results Labs Test 02/19/17 11:39 02/19/17 22:09 White Blood Count 5.7 TH/MM3 Red Blood Count 3.44 MIL/MM3 Hemoglobin 12.1 GM/DL Hematocrit 35.4 % Mean Corpuscular Volume 102.7 FL Mean Corpuscular Hemoglobin 35.1 PG Mean Corpuscular Hemoglobin Concent 34.2 % Red Cell Distribution Width 14.0 % Platelet Count 138 TH/MM3 Mean Platelet Volume 9.9 FL Neutrophils (%) (Auto) 46.1 % Lymphocytes (%) (Auto) 36.7 % Monocytes (%) (Auto) 16.0 % Eosinophils (%) (Auto) 0.7 % Basophils (%) (Auto) 0.5 % Neutrophils # (Auto) 2.6 TH/MM3 Lymphocytes # (Auto) 2.1 TH/MM3 Monocytes # (Auto) 0.9 TH/MM3 Eosinophils # (Auto) 0.0 TH/MM3 Basophils # (Auto) 0.0 TH/MM3 CBC Comment DIFF FINAL Differential Comment Blood Urea Nitrogen 13 MG/DL Creatinine 0.76 MG/DL Random Glucose 107 MG/DL Calcium Level 7.9 MG/DL Sodium Level 140 MEQ/L Potassium Level 3.6 MEQ/L Chloride Level 106 MEQ/L Carbon Dioxide Level 22.9 MEQ/L Anion Gap 11 MEQ/L Estimat Glomerular Filtration Rate 78 ML/MIN Hemoglobin A1c 5.3 % Triglycerides Level 123 MG/DL Cholesterol Level 131 MG/DL LDL Cholesterol 62 MG/DL HDL Cholesterol 44.7 MG/DL Cholesterol/HDL Ratio 2.93 RATIO Ammonia 45 MCMOL/L Vitals/IOs Vital Signs Date Time Temp Pulse Resp B/P (MAP) Pulse Ox O2 Delivery O2 Flow Rate FiO2 02/20/17 04:44 97.8 70 20 148/65 (92) 97 Intake and Output 02/20/17 02/20/17 02/21/17 08:00 16:00 00:00 Intake Total 240 ml Balance 240 ml Assessment & Plan Problem List: (1) Schizophrenia ICD Codes: F20.9 - Schizophrenia, unspecified Status: Acute Assessment & Plan Estimated LOS: days patient continues psychotic delusional with vague auditory hallucinations. We'll continue medication per the med reconciliation. Also will be offering ingrezza. Justification for Cont. Inpt. At this time patient decompensate with place the lower level of care Discharge Planning Probable return to [facility] Request HC Surrog/Guard Advoc?: Last Thompson MD Feb 20, 2017 10:49
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
[2017-02-20 18:02] VITALS: BP 156/74; PULSE 85; RESP 20; TEMP 97.5; O2SAT 100
[2017-02-20] MEDS: REMOVE OLD NICOTINE PATCH T-DERMAL SCH (20:49)
[2017-02-20 22:00] VITALS: BP 160/82; PULSE 72; RESP 20
[2017-02-21 05:27] VITALS: BP 131/77; PULSE 67; RESP 16; TEMP 98.5; O2SAT 98
[2017-02-21] MEDS: DIVALPROEX SODIUM E.R. 500 MG TAB PO SCH ×2 (08:35→21:27)
[2017-02-21] MEDS: BENZTROPINE MESYLATE 2 MG TAB PO SCH (08:35)
[2017-02-21] MEDS: LACTULOSE SYRUP 20 GM/30 ML CUP PO SCH (08:36)
[2017-02-21] MEDS: ZIPRASIDONE HCL 80 MG CAP PO SCH ×2 (08:36→21:27)
[2017-02-21] MEDS: INGREZZA 40 MG PO SCH (08:36)
[2017-02-21] MEDS: NICOTINE 21 MG/24 HR PATCH T-DERMAL SCH (08:39)
[2017-02-21] MEDS ORDERED: INGREZZA 40 MG PO SCH (09:00)
--- NOTE | 2017-02-21 09:03 | HHI.PYPN ---
Subjective Chief Complaint: increase auditory hallucinations Remarks Patient seen in her room with nurse Chanelle and medical student Javan, chart review, patient reluctantly compliant with medication with much encouragement from staff. When I attempted to discuss her legal status through the [place] act she became a little more irritable making some sexually inappropriate comments. While she denies voices she appears to be responding to internal stimuli. For now continue treatment Review of Systems Except as stated in HPI: all other systems reviewed are Neg Mental Status Examination Appearance: Appropriate Consciousness: Alert Orientation: Person, Place Speech: Other (laughing out loud at times) Language: Other (making strange sounds at times) Fund of Knowledge: Inadequate Attention and Concentration: Easily Distracted Memory: Impaired Mood: Other ("not so good") Affect: Labile Thought Process & Associations: Loose associations, Disorganized Thought Content: Bizarre thinking, Hallucinations, Delusional Hallucination Type: Auditory Delusion Type: Bizarre, Paranoid Suicidal Ideation: No Suicidal Plan: No Suicidal Intention: No Homicidal Ideation: No Homicidal Plan: No Homicidal Intention: No Insight: Poor Judgment: Poor Results Vitals/IOs Vital Signs Date Time Temp Pulse Resp B/P (MAP) Pulse Ox O2 Delivery O2 Flow Rate FiO2 02/21/17 05:27 98.5 67 16 131/77 (95) 98 Assessment & Plan Problem List: (1) Schizophrenia, 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 Showing reluctant compliance medication after much encouragement by me. For now continue treatment Justification for Cont. Inpt. This time patient will decompensate with placed in the lower level of care Discharge Planning Probable return to her [facility] after stabilization Request HC Surrog/Guard Advoc?: No Last Bar MD Feb 21, 2017 09:03
[2017-02-21] MEDS: REMOVE OLD NICOTINE PATCH T-DERMAL SCH (21:00)
[2017-02-22 06:00] VITALS: BP 129/59; PULSE 62; RESP 16; TEMP 98.2; O2SAT 97
--- NOTE | 2017-02-22 08:59 | PD.TTN ---
Patient Problems 1. Discharge planning 2. Medication compliance 3. Knowledge deficit 4. Lack of coping skills Progress Toward Goals Provider Present: Dr. Denis Bar Provider Input: 02/20 -Patient is new 02/22 patient remains symptomatic/ still meets criteria Nurse(s) Input: 02/20 patient needed ETO last night very uncontrolled 02/22 patient still manic like Psychiatric Counselors Present: Alice Thompson LCSW Psych Therapist Input: 02/20 patient is from [place], very psychotic at baseline, needs Ingrezza nurse will get with pharmacy if available here 80 mg per day can return to [place] once stable 02/22 patient is unable to make contact/ talk with therapist and is avoidant and does not interact appropriately - can return to [place] and is known to be psychotic at baseline Group Spec/RT/OT/MCMAHON Present: LISANDRO Mitchell Group Spec/RT/OT/MCMAHON Input: 02/22 does not come to groups Alice Thompson LCSW Feb 22, 2017 08:59
[2017-02-22] MEDS: NICOTINE 21 MG/24 HR PATCH T-DERMAL SCH (09:00)
[2017-02-22] MEDS: INGREZZA 40 MG PO SCH (09:00)
[2017-02-22] MEDS: ZIPRASIDONE HCL 80 MG CAP PO SCH ×2 (10:23→21:00)
[2017-02-22] MEDS: BENZTROPINE MESYLATE 2 MG TAB PO SCH (10:23)
[2017-02-22] MEDS: LACTULOSE SYRUP 20 GM/30 ML CUP PO SCH (10:24)
[2017-02-22] MEDS: DIVALPROEX SODIUM E.R. 500 MG TAB PO SCH ×2 (10:24→21:00)
--- NOTE | 2017-02-22 13:46 | HHI.PYPN ---
Subjective Chief Complaint: increase auditory hallucinations Remarks Patient seen in her room with nurse Lynsey, patient laying quietly in bed on her side facing away from me. Chart reviewed. Patient compliant medication. Attempted to speak with patient patient refuses to speak with me or make eye contact with me I did attempt to explain the fact that she is scheduled for [employer] hearing tomorrow, there is no response to that either. For now continue treatment patient scheduled for [facility] [facility] in a.m. Review of Systems Except as stated in HPI: all other systems reviewed are Neg Mental Status Examination Appearance: Appropriate Consciousness: Alert Orientation: Person, Place Speech: Other (laughing out loud at times) Language: Other (making strange sounds at times) Fund of Knowledge: Inadequate Attention and Concentration: Easily Distracted Memory: Impaired Mood: Other ("not so good") Affect: Labile Thought Process & Associations: Loose associations, Disorganized Thought Content: Bizarre thinking, Hallucinations, Delusional Hallucination Type: Auditory Delusion Type: Bizarre, Paranoid Suicidal Ideation: No Suicidal Plan: No Suicidal Intention: No Homicidal Ideation: No Homicidal Plan: No Homicidal Intention: No Insight: Poor Judgment: Poor Results Vitals/IOs Vital Signs Date Time Temp Pulse Resp B/P (MAP) Pulse Ox O2 Delivery O2 Flow Rate FiO2 02/22/17 06:00 98.2 62 16 129/59 (82) 97 Intake and Output 02/22/17 02/22/17 02/23/17 08:00 16:00 00:00 Intake Total 600 ml Balance 600 ml Assessment & Plan Problem List: (1) Schizophrenia, 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 Inpt. At this time patient will decompensate the placed in a lower level of care Discharge Planning Patient selectively mute today placement may become problematic patient scheduled for [facility] tomorrow Request HC Surrog/Guard Advoc?: No Last Bar MD Feb 22, 2017 13:46
[2017-02-22 18:34] VITALS: BP 125/60; PULSE 69; RESP 17; TEMP 97.3; O2SAT 96
[2017-02-22] MEDS: REMOVE OLD NICOTINE PATCH T-DERMAL SCH (21:00)
[2017-02-23 05:56] VITALS: BP 122/60; PULSE 65; RESP 18; TEMP 96.9; O2SAT 98
[2017-02-23] MEDS: DIVALPROEX SODIUM E.R. 500 MG TAB PO SCH ×2 (07:57→21:52)
[2017-02-23] MEDS: ZIPRASIDONE HCL 80 MG CAP PO SCH ×2 (07:57→21:00)
[2017-02-23] MEDS: BENZTROPINE MESYLATE 2 MG TAB PO SCH (07:57)
[2017-02-23] MEDS: NICOTINE 21 MG/24 HR PATCH T-DERMAL SCH (07:58)
[2017-02-23] MEDS: INGREZZA 40 MG PO SCH (07:58)
[2017-02-23] MEDS: LACTULOSE SYRUP 20 GM/30 ML CUP PO SCH (08:03)
--- NOTE | 2017-02-23 12:02 | HHI.PYPN ---
Subjective Chief Complaint: increase auditory hallucinations Remarks Patient seen in [place] [address], was retained by Infection Prevention Coordinator Nancy, perinephric appointed. Patient showing some mild improvement in compliance with medication. Though she is markedly disorganized at times silly with vague hypersexual comments. For now continue treatment Review of Systems Except as stated in HPI: all other systems reviewed are Neg Mental Status Examination Appearance: Appropriate Consciousness: Alert Orientation: Person, Place Speech: Other (laughing out loud at times) Language: Other (making strange sounds at times) Fund of Knowledge: Inadequate Attention and Concentration: Easily Distracted Memory: Impaired Mood: Other ("not so good") Affect: Labile Thought Process & Associations: Loose associations, Disorganized Thought Content: Bizarre thinking, Hallucinations, Delusional Hallucination Type: Auditory Delusion Type: Bizarre, Paranoid Suicidal Ideation: No Suicidal Plan: No Suicidal Intention: No Homicidal Ideation: No Homicidal Plan: No Homicidal Intention: No Insight: Poor Judgment: Poor Results Vitals/IOs Vital Signs Date Time Temp Pulse Resp B/P (MAP) Pulse Ox O2 Delivery O2 Flow Rate FiO2 02/23/17 05:56 96.9 65 18 122/60 (80) 98 Intake and Output 02/23/17 02/23/17 02/24/17 08:00 16:00 00:00 Intake Total 360 ml 120 ml Balance 360 ml 120 ml Assessment & Plan Problem List: (1) Schizophrenia, 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 Continues needing much encouragement for cooperation with medication. Patient retained by Judge Cruz Justification for Cont. Inpt. At this time patient will decompensate with placed on lower level of care Discharge Planning Staff working hard to find appropriate placement Request HC Surrog/Guard Advoc?: Yes Last Bar MD Feb 23, 2017 12:02
[2017-02-23 17:05] VITALS: BP 120/58; PULSE 66; RESP 17; TEMP 97.1; O2SAT 98
[2017-02-23] MEDS: REMOVE OLD NICOTINE PATCH T-DERMAL SCH (21:00)
[2017-02-24 06:05] VITALS: BP 137/61; PULSE 62; RESP 16; TEMP 97.8; O2SAT 98
[2017-02-24] MEDS: DIVALPROEX SODIUM E.R. 500 MG TAB PO SCH ×3 (08:00→21:29)
[2017-02-24] MEDS: BENZTROPINE MESYLATE 2 MG TAB PO SCH (08:00)
[2017-02-24] MEDS: LACTULOSE SYRUP 20 GM/30 ML CUP PO SCH ×2 (08:00→09:00)
[2017-02-24] MEDS: ZIPRASIDONE HCL 80 MG CAP PO SCH ×2 (08:00→21:00)
[2017-02-24] MEDS: INGREZZA 40 MG PO SCH (08:01)
[2017-02-24] MEDS: NICOTINE 21 MG/24 HR PATCH T-DERMAL SCH (08:03)
--- NOTE | 2017-02-24 14:03 | HHI.PYPN ---
Subjective Chief Complaint: increase auditory hallucinations Remarks Patient seen in her room to floor staff, chart reviewed, patient compliant medications. Patient seen in her bed covers to her chin at times making childlike screeching noises. Today telling me to "go away" patient continues quite vigilant and paranoid. Will increase Geodon to 80 mg a.m. 160 mg p.m. Review of Systems Except as stated in HPI: all other systems reviewed are Neg Mental Status Examination Appearance: Appropriate Consciousness: Alert Orientation: Person, Place Speech: Other (laughing out loud at times) Language: Other (making strange sounds at times) Fund of Knowledge: Inadequate Attention and Concentration: Easily Distracted Memory: Impaired Mood: Other ("not so good") Affect: Labile Thought Process & Associations: Loose associations, Disorganized Thought Content: Bizarre thinking, Hallucinations, Delusional Hallucination Type: Auditory Delusion Type: Bizarre, Paranoid Suicidal Ideation: No Suicidal Plan: No Suicidal Intention: No Homicidal Ideation: No Homicidal Plan: No Homicidal Intention: No Insight: Poor Judgment: Poor Results Vitals/IOs Vital Signs Date Time Temp Pulse Resp B/P (MAP) Pulse Ox O2 Delivery O2 Flow Rate FiO2 02/24/17 06:05 97.8 62 16 137/61 (86) 98 Intake and Output 02/24/17 02/24/17 02/25/17 08:00 16:00 00:00 Intake Total 120 ml Balance 120 ml Assessment & Plan Problem List: (1) Schizophrenia, 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 Please medication adjustments Justification for Cont. Inpt. At this time patient decompensate the placed a lower level of care Discharge Planning Treatment team continues to consider treatment and placement options Request HC Surrog/Guard Advoc?: Yes Last Bar MD Feb 24, 2017 14:03
[2017-02-24 18:13] VITALS: BP 142/64; PULSE 70; RESP 17; TEMP 98.1; O2SAT 99
[2017-02-24] MEDS: REMOVE OLD NICOTINE PATCH T-DERMAL SCH (21:00)
[2017-02-24] MEDS: diphenhydrAMINE HCL 50 MG CAP PO PRN (21:32)
[2017-02-25 06:01] VITALS: BP 138/64; PULSE 63; RESP 18; TEMP 98; O2SAT 96
[2017-02-25] MEDS: BENZTROPINE MESYLATE 2 MG TAB PO SCH (08:08)
[2017-02-25] MEDS: LACTULOSE SYRUP 20 GM/30 ML CUP PO SCH ×2 (08:08→08:12)
[2017-02-25] MEDS: DIVALPROEX SODIUM E.R. 500 MG TAB PO SCH ×3 (08:08→21:00)
[2017-02-25] MEDS: NICOTINE 21 MG/24 HR PATCH T-DERMAL SCH (08:09)
[2017-02-25] MEDS: ZIPRASIDONE HCL 80 MG CAP PO SCH ×2 (08:09→21:26)
[2017-02-25] MEDS: INGREZZA 40 MG PO SCH (08:09)
--- NOTE | 2017-02-25 10:54 | HHI.PYPN ---
Subjective Chief Complaint: increase auditory hallucinations Remarks Patient was seen and case discussed with nursing. Patient is guarded, soft spoken and likely responding to internal stimuli during the interview. She is paranoid with medications refusing to take Depakote and lactulose. Per nursing she is smelling her medications before taking them. Psychoeducation was not successful. Paranoia is evident Mental Status Examination Appearance: Appropriate Consciousness: Alert Orientation: Person, Place Speech: Other (laughing out loud at times) Language: Other (making strange sounds at times) Fund of Knowledge: Inadequate Attention and Concentration: Easily Distracted Memory: Impaired Mood: Other ("not so good") Affect: Labile Thought Process & Associations: Loose associations, Disorganized Thought Content: Bizarre thinking, Hallucinations (denies today), Delusional Hallucination Type: Auditory Delusion Type: Bizarre, Paranoid Suicidal Ideation: No Suicidal Plan: No Suicidal Intention: No Homicidal Ideation: No Homicidal Plan: No Homicidal Intention: No Insight: Poor Judgment: Poor Results Vitals/IOs Vital Signs Date Time Temp Pulse Resp B/P (MAP) Pulse Ox O2 Delivery O2 Flow Rate FiO2 02/25/17 06:01 98.0 63 18 138/64 (88) 96 Assessment & Plan Problem List: (1) Schizophrenia, 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 Inpt. Patient will decompensate in a less restrictive setting Request HC Surrog/Guard Advoc?: Yes Jorge Palomo DO Feb 25, 2017 10:54
[2017-02-25 18:24] VITALS: BP 118/62; PULSE 64; RESP 18; TEMP 98.5; O2SAT 98
[2017-02-25] MEDS: REMOVE OLD NICOTINE PATCH T-DERMAL SCH (21:00)
[2017-02-25] MEDS: diphenhydrAMINE HCL 50 MG CAP PO PRN (21:26)
[2017-02-26 05:27] VITALS: BP 134/64; PULSE 60; RESP 17; TEMP 97.9
[2017-02-26] MEDS: NICOTINE 21 MG/24 HR PATCH T-DERMAL SCH (09:00)
[2017-02-26] MEDS: LACTULOSE SYRUP 20 GM/30 ML CUP PO SCH (09:00)
[2017-02-26] MEDS: DIVALPROEX SODIUM E.R. 500 MG TAB PO SCH ×2 (09:00→21:41)
[2017-02-26] MEDS: BENZTROPINE MESYLATE 2 MG TAB PO SCH (09:00)
[2017-02-26] MEDS: ZIPRASIDONE HCL 80 MG CAP PO SCH ×2 (09:00→21:41)
[2017-02-26] MEDS: INGREZZA 40 MG PO SCH (11:36)
--- NOTE | 2017-02-26 12:44 | HHI.PYPN ---
Subjective Chief Complaint: increase auditory hallucinations Remarks Patient was seen and case discussed with nursing. Patient continues to refuse her Depakote and her lactulose. She remains disheveled and bizarre. Was talking about garbage cans and being friends with bums on the streets. Auditory hallucinations are "yes, think so." Mental Status Examination Appearance: Appropriate Consciousness: Alert Orientation: Person, Place Speech: Other (laughing out loud at times) Language: Other (making strange sounds at times) Fund of Knowledge: Inadequate Attention and Concentration: Easily Distracted Memory: Impaired Mood: Other ("not so good") Affect: Labile Thought Process & Associations: Loose associations, Disorganized Thought Content: Bizarre thinking, Hallucinations (nonspecific), Delusional Hallucination Type: Auditory Delusion Type: Bizarre, Paranoid Suicidal Ideation: No Suicidal Plan: No Suicidal Intention: No Homicidal Ideation: No Homicidal Plan: No Homicidal Intention: No Insight: Poor Judgment: Poor Results Vitals/IOs Vital Signs Date Time Temp Pulse Resp B/P (MAP) Pulse Ox O2 Delivery O2 Flow Rate FiO2 02/26/17 05:27 97.9 60 17 134/64 (87) 02/25/17 18:24 98 Assessment & Plan Problem List: (1) Schizophrenia, 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 Inpt. Patient will decompensate in a less restrictive setting Request HC Surrog/Guard Advoc?: Yes Jorge Palomo DO Feb 26, 2017 12:44
[2017-02-26] MEDS: REMOVE OLD NICOTINE PATCH T-DERMAL SCH (21:00)
[2017-02-26 22:00] VITALS: PULSE 79; RESP 18; TEMP 98
[2017-02-27 05:47] VITALS: BP 112/56; PULSE 61; RESP 17; TEMP 97.3
[2017-02-27] MEDS: INGREZZA 40 MG PO SCH (08:38)
[2017-02-27] MEDS: ZIPRASIDONE HCL 80 MG CAP PO SCH ×2 (08:55→21:47)
[2017-02-27] MEDS: DIVALPROEX SODIUM E.R. 500 MG TAB PO SCH ×2 (08:55→21:47)
[2017-02-27] MEDS: BENZTROPINE MESYLATE 2 MG TAB PO SCH (08:55)
[2017-02-27] MEDS: NICOTINE 21 MG/24 HR PATCH T-DERMAL SCH (08:56)
[2017-02-27] MEDS: LACTULOSE SYRUP 20 GM/30 ML CUP PO SCH (08:56)
--- NOTE | 2017-02-27 11:38 | PD.TTN ---
Patient Problems 1. Discharge planning 2. Medication compliance 3. Knowledge deficit 4. Lack of coping skills Progress Toward Goals Provider Present: Dr. Denis Bar Provider Input: 02/20 -Patient is new 02/22 patient remains symptomatic/ still meets criteria 02/27 per doctor patient is improving very littel Nurse(s) Input: 02/20 patient needed ETO last night very uncontrolled 02/22 patient still manic like 02/27 still paranoid Psychiatric Counselors Present: Alice Thompson LCSW Psych Therapist Input: 02/20 patient is from [place], very psychotic at baseline, needs Ingrezza nurse will get with pharmacy if available here 80 mg per day can return to [place] once stable 02/22 patient is unable to make contact/ talk with therapist and is avoidant and does not interact appropriately - can return to [place] and is known to be psychotic at baseline 02/27 patient is limited in her interaction and still seclusive and psychotic , watchful but overall not as erratic and walking and pacing as she did at beginning Group Spec/RT/OT/MCMAHON Present: LISANDRO Mitchell, Moustapha Ortega, OT Group Spec/RT/OT/MCMAHON Input: 02/22 does not come to groups Occupational Therapist Input: 02/27 rarely comes to groups Alice Thompson LCSW Feb 27, 2017 11:38
--- NOTE | 2017-02-27 13:47 | HHI.PYPN ---
Subjective Chief Complaint: increase auditory hallucinations Remarks Patient seen in her room with nurse Dar and medical student Jesse, chart reviewed, patient compliant medications. Patient continues somewhat superficial silly vigilant though denying voices at this time. She also continue somewhat disorganized. Of interest ammonia level on 02/19 is 45 will repeat in a.m. For now continue treatment no change Review of Systems Except as stated in HPI: all other systems reviewed are Neg Mental Status Examination Appearance: Appropriate Consciousness: Alert Orientation: Person, Place Speech: Other (laughing out loud at times) Language: Other (making strange sounds at times) Fund of Knowledge: Inadequate Attention and Concentration: Easily Distracted Memory: Impaired Mood: Other ("not so good") Affect: Labile Thought Process & Associations: Loose associations, Disorganized Thought Content: Bizarre thinking, Hallucinations (nonspecific), Delusional Hallucination Type: Auditory Delusion Type: Bizarre, Paranoid Suicidal Ideation: No Suicidal Plan: No Suicidal Intention: No Homicidal Ideation: No Homicidal Plan: No Homicidal Intention: No Insight: Poor Judgment: Poor Results Vitals/IOs Vital Signs Date Time Temp Pulse Resp B/P (MAP) Pulse Ox O2 Delivery O2 Flow Rate FiO2 02/27/17 05:47 97.3 61 17 112/56 (74) 02/25/17 18:24 98 Assessment & Plan Problem List: (1) Schizophrenia, 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 Also his elevated ammonia level at 45 drawn 02/19 will recheck tomorrow Justification for Cont. Inpt. At this time patient decompensated placed in a lower level of care Discharge Planning Probable return to [facility] [place] Request HC Surrog/Guard Advoc?: Yes Last Bar MD Feb 27, 2017 13:47
[2017-02-27 17:22] VITALS: BP 138/65; PULSE 64; RESP 18; TEMP 98.2; O2SAT 96
[2017-02-27] MEDS: REMOVE OLD NICOTINE PATCH T-DERMAL SCH (21:00)
[2017-02-28 06:14] VITALS: BP 113/63; PULSE 60; RESP 17; TEMP 98.6; O2SAT 96
[2017-02-28] MEDS: INGREZZA 40 MG PO SCH (09:00)
[2017-02-28] MEDS: NICOTINE 21 MG/24 HR PATCH T-DERMAL SCH (09:00)
--- NOTE | 2017-02-28 09:26 | PD.TTN ---
Patient Problems 1. Discharge planning 2. Medication compliance 3. Knowledge deficit 4. Lack of coping skills Progress Toward Goals Provider Present: Dr. Denis Bar Provider Input: 02/20 -Patient is new 02/22 patient remains symptomatic/ still meets criteria 02/27 per doctor patient is improving very littel 02/28 patient to discharge back to facility if they can assess if she is at baseline , med compliant and has improved some Nurse(s) Input: 02/20 patient needed ETO last night very uncontrolled 02/22 patient still manic like 02/27 still paranoid 02/28 Psychiatric Counselors Present: Alice Thompson LCSW Psych Therapist Input: 02/20 patient is from [place], very psychotic at baseline, needs Ingrezza nurse will get with pharmacy if available here 80 mg per day can return to [place] once stable 02/22 patient is unable to make contact/ talk with therapist and is avoidant and does not interact appropriately - can return to [place] and is known to be psychotic at baseline 02/27 patient is limited in her interaction and still seclusive and psychotic , watchful but overall not as erratic and walking and pacing as she did at beginning 02/28 patient has been more in control of her erratic behaviors, still bizarre and psychotic but contacted [facility] to come out and assess this afternoon for improvement/ if patient is closer to baseline Group Spec/RT/OT/MCMAHON Present: Elsy Yadav, GPS, LISANDRO Mitchell, Moustapha Ortega, OT Group Spec/RT/OT/MCMAHON Input: 02/22 does not come to groups 02/28 patient has been attending groups and is cooperative and pleasant Occupational Therapist Input: 02/27 rarely comes to groups Alice Thompson LCSW Feb 28, 2017 09:26
[2017-02-28] MEDS: BENZTROPINE MESYLATE 2 MG TAB PO SCH (09:58)
[2017-02-28] MEDS: DIVALPROEX SODIUM E.R. 500 MG TAB PO SCH ×2 (09:59→22:28)
[2017-02-28] MEDS: LACTULOSE SYRUP 20 GM/30 ML CUP PO SCH (10:00)
[2017-02-28] MEDS: ZIPRASIDONE HCL 80 MG CAP PO SCH ×2 (10:00→22:29)
--- NOTE | 2017-02-28 13:18 | HHI.PYPN ---
Subjective Chief Complaint: increase auditory hallucinations Remarks Patient seen and a room with nurse Janae and medical student Jesse, chart review , patient compliant medications, patient continues somewhat superficial silly and giddy, she denies auditory hallucinations at the present time. Denies suicidality. When talking about her return to [facility] she showed some mild confusion about her being in the past but did remember it when once reminded of it. Will decrease a.m. Geodon to 120 mg Review of Systems Except as stated in HPI: all other systems reviewed are Neg Mental Status Examination Appearance: Appropriate Consciousness: Alert Orientation: Person, Place Speech: Other (laughing out loud at times) Language: Other (making strange sounds at times) Fund of Knowledge: Inadequate Attention and Concentration: Easily Distracted Memory: Impaired Mood: Other ("not so good") Affect: Labile Thought Process & Associations: Loose associations, Disorganized Thought Content: Bizarre thinking, Hallucinations (nonspecific), Delusional Hallucination Type: Auditory Delusion Type: Bizarre, Paranoid Suicidal Ideation: No Suicidal Plan: No Suicidal Intention: No Homicidal Ideation: No Homicidal Plan: No Homicidal Intention: No Insight: Poor Judgment: Poor Results Labs Test 02/28/17 10:29 Ammonia 14 MCMOL/L Vitals/IOs Vital Signs Date Time Temp Pulse Resp B/P (MAP) Pulse Ox O2 Delivery O2 Flow Rate FiO2 02/28/17 06:14 98.6 60 17 113/63 (80) 96 Intake and Output 02/28/17 02/28/17 03/01/17 08:00 16:00 00:00 Intake Total 240 ml Balance 240 ml Assessment & Plan Problem List: (1) Schizophrenia, 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 Patient does denies suicidality.She is reaching her baseline behaviors. Will have staff from [facility] come and assess patient consider discharge by end of this week she medication adjustment above Justification for Cont. Inpt. At this time patient will decompensate and placed a lower level of care Discharge Planning Return to [facility] if possible Request HC Surrog/Guard Advoc?: Yes Last Bar MD Feb 28, 2017 13:18
[2017-02-28 18:00] VITALS: BP 120/67; PULSE 67; RESP 18; TEMP 97.7; O2SAT 96
[2017-02-28] MEDS: REMOVE OLD NICOTINE PATCH T-DERMAL SCH (21:00)
[2017-03-01 05:59] VITALS: BP 158/75; PULSE 65; RESP 18; TEMP 97.9; O2SAT 92
[2017-03-01] MEDS: DIVALPROEX SODIUM E.R. 500 MG TAB PO SCH (08:33)
[2017-03-01] MEDS: LACTULOSE SYRUP 20 GM/30 ML CUP PO SCH (08:33)
[2017-03-01] MEDS: BENZTROPINE MESYLATE 2 MG TAB PO SCH (08:33)
[2017-03-01] MEDS: NICOTINE 21 MG/24 HR PATCH T-DERMAL SCH (08:34)
[2017-03-01] MEDS: INGREZZA 40 MG PO SCH (08:34)
[2017-03-01] MEDS ORDERED: ZIPRASIDONE HCL 60 MG CAP PO SCH (09:00)
[2017-03-01] MEDS ORDERED: ZIPR1CAP12 PO (11:30)
[2017-03-01] MEDS ORDERED: DIVA500T3 PO (11:30)
[2017-03-01] MEDS ORDERED: BENZ0.5T PO (11:30)
--- NOTE | 2017-03-01 11:37 | HHI.DS ---
Psychiatry Discharge Summary Inpatient Psychiatric care?: Yes Advance Directive: No Reason Not Provided: Mental Health AdvanceDirective: No Health Care Proxy: No Admission Admission Date Feb 18, 2017 at 19:34 Admission Diagnosis: (1) Schizophrenia, disorganized ICD Code: F20.1 - Disorganized schizophrenia Brief History Pt seen and chart reviewed. Pt is a 61YOWF with a hx of schizophrenia who was admitted to [facility] under a BA due to psychosis. Last night she was running up and down hallway, hissing at staff and responding to internal stimuli. She refused EKG. She was agitated this morning and was given IM haldol 5mg X1 for safety and calmed down. Pt states that she is not having a good day but feels that her medications "are actually getting better for me. I guess they are helping". She is evasive when asked if she had been compliant with psychiatric medications prior to admission. She rambles and is quite delusional and paranoid. Tobacco Use In Past 30 Days: No Tobacco Past 30 Days Alcohol Use: Monthly or Less Hospital Course Patient's hospital course was somewhat uneventful, vigilance and paranoia and disorganization slowly softening of the compliant medication. Her lability softening, the auditory hallucinations softened. She remained somewhat silly and disorganized. But it appears per discussions with the ALICIA the patient remains chronically mildly psychotic. Mini-Mental patient compliant medications. She is no behavioral problem. Denies suicidality homicidality. Now denies voices. Patient was assessed also by staff from [facility]. They feel she is at her baseline. I willing have her return to that facility today. Thus patient be discharged today to [facility] Rx 1 month. The follow-up mental health services through that facility Results Blood Pressure 158 / 75 Vital Signs Date Time Temp Pulse Resp B/P (MAP) Pulse Ox O2 Delivery O2 Flow Rate FiO2 03/01/17 05:59 97.9 65 18 158/75 (102) 92 Laboratory Tests Test 02/28/17 10:29 Laboratory Results Test 02/19/17 11:39 Cholesterol Level 131 MG/DL (120-200) HDL Cholesterol 44.7 MG/DL (40.0-60.0) Hemoglobin A1c 5.3 % (4.3-6.0) LDL Cholesterol 62 MG/DL (0-99) Triglycerides Level 123 MG/DL (42-150) Summary of Procedures None done Pending results at discharge: No Medications # of Antipsychotic meds at D/C: 1 Approp Antipsych med options 1 - Minimum of three failed multiple trials of monotherapy. 2 - Documented plan to taper to monotherapy due to previous use of multiple meds OR cross-taper in progress at D/C. 3 - Documentation of augmentation of Clozapine. 4 - Justification other than those listed in allowable values 1-3, document here : Discharge Discharge Date: Mar 01, 2017 Discharge Diagnosis: (1) Schizophrenia, disorganized Diagnosis: Principal ICD Code: F20.1 - Disorganized schizophrenia Status: Chronic Pt Condition on Discharge: Stable Discharge Disposition: ACLF/RETIREMENT Discharge Instructions Diet Instructions: As Tolerated, No Restrictions Activities you can perform: Regular-No Restrictions [facility] Mental Status Examination Appearance: Appropriate Consciousness: Alert Orientation: Person, Place Speech: Other (laughing out loud at times) Language: Other (making strange sounds at times) Fund of Knowledge: Inadequate Attention and Concentration: Easily Distracted Memory: Impaired Mood: Other ("not so good") Affect: Labile Thought Process & Associations: Loose associations, Disorganized Thought Content: Bizarre thinking, Hallucinations (nonspecific), Delusional Hallucination Type: Auditory Delusion Type: Bizarre, Paranoid Suicidal Ideation: No Suicidal Plan: No Suicidal Intention: No Homicidal Ideation: No Homicidal Plan: No Homicidal Intention: No Insight: Poor Judgment: Poor Discharge/Advance Care Plan Health Problems: (1) Schizophrenia, disorganized Goals to promote your health * To prevent worsening of your condition and complications * To maintain your health at the optimal level Directions to meet your goals Take your medications as prescribed Follow your dietary instruction Follow activity as directed Keep your appointments as scheduled Take your immunizations and boosters as scheduled If your symptoms worsen call your PCP, if no PCP go to Urgent Care Center or Emergency Room For 07/11 questions related to your inpatient stay or results of tests pending at discharge, please contact Dr. Last Bar at Smoking is Dangerous to Your Health. Avoid second hand smoking Last Bar MD Mar 01, 2017 11:37
== END 2017-03-01 10:14 | DRG 885 ==
LOC: H250 19:34 → H260 02-21 17:30
PROVIDERS: ADMIT Psychiatry & Neurology Psychiatry; ATTEND Psychiatry & Neurology Psychiatry
DX: F20.1 Disorganized schizophrenia (principal); F22 Delusional disorders; R29.6 Repeated falls; F10.10 Alcohol abuse, uncomplicated; F94.0 Selective mutism
CPT/HCPCS: 70450; 71010; 80048; 80053; 80061; 80164; 80307; 81001; 82140; 82550; 83036; 83605; 84443; 84484; 85025; 85610; 85730; 93005; 96360; 96361; G0378; J1630; J7030; P9612; Q0163